=== PATIENT | male | born 1970 | race Caucasian/White ===

== ENCOUNTER 2021-01-24 15:53 | Emergency (ER) | payer OTHER ==
[2021-01-24] MEDS ORDERED: Bupivacaine 0.5% 10 ML SDV INJECT ONE (16:19)
--- NOTE | 2021-01-24 16:22 | EDM.PDOC ---
ED HPI GENERAL MEDICAL PROBLEM - General Chief Complaint: Laceration Stated Complaint: L LEG LAC Time Seen by Provider: 01/24/21 16:10 Source of Information: Reports: Patient, Family (Spouse) History Limitations: Reports: No Limitations - History of Present Illness INITIAL COMMENTS - FREE TEXT/NARRATIVE: 50-year-old male presents to the ED for evaluation of be deep laceration just inferior to his kneecap left leg. He states that shot a deer and had pretty well finished cutting the deer in the field when he accidentally leaned on top of the hunting knife blade which resulted in a laceration over his tibial tuberosity of the left leg. He states he still able to walk with no weakness in the lower extremity. His tetanus toxoid is up-to-date within the last year. The knife was fairly dirty of course. Injury occurred about an hour and a half before coming to the ED. Onset: Today, Sudden Onset Date: 01/24/21 Onset Time: 15:00 Duration: Minutes:, Constant Location: Reports: Lower Extremity, Left (Laceration just inferior to the left patella over the tibial tuberosity anterior) Quality: Reports: Ache ( left leg) Severity: Mild Improves with: Reports: Rest Worsens with: Reports: Movement Context: Reports: Trauma (Accidentally leaned on the blade of a hunting knife being used to dress out a deer.). 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.) Left Knee Pain Score (Numeric/FACES): 5 - Related Data Allergies Allergy/AdvReac Type Severity Reaction Status Date / Time No Known Allergies Allergy Verified 01/24/21 16:13 Home Meds: Home Meds Allopurinol [Zyloprim] 01/24/21 [History] DULoxetine [Cymbalta] 01/24/21 [History] Doxycycline [Vibra-Tabs] 100 mg PO Q12HR #16 tab 01/24/21 [Rx] Gabapentin [Neurontin] 01/24/21 [History] Rosuvastatin [Crestor] 01/24/21 [History] Zolpidem Tartrate [Ambien] 5 mg PO 01/24/21 [History] Past Medical History Cardiovascular History: Reports: High Cholesterol Musculoskeletal History: Reports: Gout Psychiatric History: Reports: Depression, Other (See Below) (Chronic insomnia) Social & Family History - Living Situation & Occupation Living situation: Reports: Occupation: Employed ED ROS GENERAL - Review of Systems Review Of Systems: See Below Constitutional: Denies: Fever, Chills, Malaise, Weakness, Fatigue, Decreased Appetite, Weight Loss HEENT: Reports: No Symptoms Respiratory: Reports: No Symptoms Cardiovascular: Reports: No Symptoms Endocrine: Reports: No Symptoms GI/Abdominal: Reports: No Symptoms : Reports: No Symptoms Musculoskeletal: Reports: No Symptoms Skin: Reports: No Symptoms Neurological: Reports: No Symptoms Psychiatric: Reports: No Symptoms ED EXAM, SKIN/RASH Exam: See Below Exam Limited By: No Limitations General Appearance: Alert, WD/WN, No Apparent Distress, Other (Temperature is 36.9 degrees. Heart rate 85 and sinus respiratory is 18 with O2 sats 100% on room air. BP 135/98) Eye Exam: Bilateral Eye: Normal Inspection, PERRL Extremities: Other (Examination was limited to the laceration just inferior to the left patella left leg. The laceration is approximately 3.5 cm in length and is linear. It is quite deep and will need to be explored. It is right lying right over top of his tibial tuberosity. He has full ability to flex and extend his k) Neurological: Alert, Oriented, CN II-XII Intact, Normal Cognition Psychiatric: Normal Affect, Normal Mood Skin: Warm, Dry, Normal Color, No Rash, Wound/Incision (Laceration inferior to the left patella over the tibial tuberosity left leg) ED SKIN PROCEDURES - Laceration/Wound Repair Left Lower Mid-Anterior Leg Appearance: Subcutaneous, Linear, Mildly Contaminated Distal NVT: Neuro & Vascular Intact Anesthetic Type: Local Local Anesthesia - Bupivicaine (Marcaine): 0.5% Plain Local Anesthetic Volume: Other (5 cc) Skin Prep: Saline (Wound was irrigated with saline) Saline Irrigation (cc's): 150 Exploration/Debridement/Repair: Wound Explored Closed with: Sutures Lac/Wound length In cm: 3.5 Suture Size: 3-0 Suture Type: Nylon, Interrupted, Simple Course - Vital Signs Last Recorded V/S: Last Vital Signs Temp 36.9 C 01/24/21 16:11 Pulse 85 01/24/21 16:11 Resp 18 01/24/21 16:11 BP 135/98 H 01/24/21 16:11 Pulse Ox 100 01/24/21 16:11 - Orders/Labs/Meds Meds: Medications Discontinued Medications Generic Name Dose Route Start Last Admin Trade Name Adriana PRN Reason Stop Dose Admin Bupivacaine HCl 10 ml 01/24/21 16:19 01/24/21 16:47 Bupivacaine 0.5% 10 Ml Sdv INJECT 01/24/21 16:20 10 ml ONETIME ONE Administration - Radiology Interpretation Free Text/Narrative:: 50-year-old male presents to the ED for evaluation of a deep laceration over his left tibial tuberosity left leg. Patient was dressing a deer in the field and accidentally knelt down on the blade of the hunting knife with resultant deep laceration approximately 3.5 cm in length over the tibial tuberosity left leg. He reports he is able to walk normally. Injury occurred about an hour and a half before coming to the ED. His tetanus toxoid is up-to-date. - Re-Assessments/Exams Free Text/Narrative Re-Assessment/Exam: 01/24/21 16:40 I have anesthetized to his laceration inferior to his left patella with bupivacaine 0.5% which will allow the wound to be thoroughly irrigated and cleansed by nursing staff. Once this is completed I will suture the wound closed after exploring it. 01/24/21 17:18: Laceration has been irrigated thoroughly with saline by nursing staff. I explored the wound and it does travel down to the fascia but does not involve any muscle tissue of the quadriceps tendon. Wound was further irrigated and cleansed of blood clots. Wound was then sutured using 3-0 nylon suture x7 to provide wound apposition and hemostasis. Patient will cleanse the wound daily at home with soap and water by showering. Apply topical antibiotic such as bacitracin or Polysporin once daily and cover with a bandage to keep clean. Sutures will need to be removed in 12 days time Departure - Departure Time of Disposition: 17:17 Disposition: Home, Self-Care 01 Condition: Fair Clinical Impression: Laceration of left lower leg Qualifiers: Encounter type: initial encounter Qualified Code(s): S81.812A - Laceration without foreign body, left lower leg, initial encounter - Discharge Information *PRESCRIPTION DRUG MONITORING PROGRAM REVIEWED*: Not Applicable *COPY OF PRESCRIPTION DRUG MONITORING REPORT IN PATIENT DAVID: Not Applicable Prescriptions: Doxycycline [Vibra-Tabs] 100 mg PO Q12HR #16 tab Instructions: Laceration Care, Adult, Sutures, Daisha, or Adhesive Wound Closure, [id number] Referrals: PCP,Not In Area [Primary Care Provider] - Forms: ED Department Discharge Additional Instructions: Evaluation in the emergency room today in regards to a 3.5 cm laceration inferior to your kneecap over the tibial tuberosity where the quadriceps tendon anchors into the bone. This occurred accidentally when you leaned on top of a hunting knife blade today. Exploration of the wound under local anesthetic reveals no injury to the underlying tendon although the tendon sheath was exp osed. Wound was irrigated after it was anesthetized. Wound was then sutured using seven 3-0 Ethilon sutures. Treatment at home is to daily cleanse the area with soap and water. Showering is okay. Then apply topical antibiotic such as bacitracin or Polysporin to the wound once daily and cover with a bandage to keep clothing from rubbing on the wound. Sutures should be removed in about 12 days time. Of note the wound should not be soaked underwater until after the sutures are removed. Suggest oral antibiotic doxycycline 100 mg by mouth twice daily for the next 8 days to prevent secondary wound infection since the blade of the knife was quite dirty etc. Follow-up with personal physician if any signs of infection occur such as redness, swelling, increased pain, and or obvious pus Sepsis Event Note (ED) - Evaluation Sepsis Screening Result: No Definite Risk - Focused Exam Vital Signs: Vital Signs Temp Pulse Resp BP Pulse Ox 01/24/21 16:11 36.9 C 85 18 135/98 H 100
== END 2021-01-24 17:52 | disposition home or self-care (01) ==
LOC: JD.ED 15:53
DX: S81.812A Laceration without foreign body, left lower leg, initial encounter (principal); E78.00 Pure hypercholesterolemia, unspecified; M10.9 Gout, unspecified; Z79.899 Other long term (current) drug therapy; W26.0XXA Contact with knife, initial encounter
CPT/HCPCS: 12002; 99282; J3490